=== PATIENT | male | born 1960 | race Caucasian/White ===

== ENCOUNTER → 2021-12-07 | Outpatient (CLI) | payer OTHER ==
[~2021-12-07] MED LIST: ADVAIR 250/501 EA INH; ALDACTONE25 MG PO; AMLODIPINE BESYL5 MG PO; ASPIRIN ADULT L81 M2 PO; ATORVASTATIN CA40 M1 PO; COZAAR25 M1 PO; LASIX40 MG PO; LEVOFLOXACIN750 M2 PO; LISINOPRIL10 M1 PO; LOSARTAN POTASS50 M1 PO; METOPROLOL SUCC50 M1 PO; MUCINEX1200 M1 PO; NORVASC5 MG PO; PREDNISONE10 MG PO; PROVENTIL HFA6.7 GM INH; TOPROL XL25 MG PO; VITAMIN D350 MC2 PO
[2021-12-07 14:31] LABS: BUN 4 mg/dl (7-24); CHLORIDE 102 mmol/L (98-107); CREATININE 0.83 mg/dL (0.70-1.30); POTASSIUM 4.4 mmol/L (3.5-5.1); SODIUM 135 mmol/L (136-145)
== END | disposition home or self-care (01) ==
LOC: LAB 13:34
PROVIDERS: ATTEND Registered Nurse
DX: E87.1 Hypo-osmolality and hyponatremia (principal)

== ENCOUNTER 2022-02-22 12:06 | Emergency (ER) | payer OTHER ==
[~2022-02-22] VITALS: Ht 182.8 cm; Wt 68.0 kg
[2022-02-22] MEDS ORDERED: HYDROCODONE-AC1 EAC1 PO (13:37)
[2022-02-22] MEDS ORDERED: VALTREX500 MG PO (13:37)
== END 2022-02-22 13:35 | disposition home or self-care (01) ==
LOC: ED 12:06
DX: B02.8 Zoster with other complications (principal); F10.10 Alcohol abuse, uncomplicated; Z87.891 Personal history of nicotine dependence; F12.10 Cannabis abuse, uncomplicated

== ENCOUNTER 2023-02-11 22:32 | Emergency (ER) | payer OTHER ==
[~2023-02-11] VITALS: Ht 182.8 cm; Wt 72.6 kg
[~2023-02-11 22:32] MED LIST changes: +HYDROCODONE-AC1 EAC1 PO; +VALTREX500 MG PO
== END 2023-02-12 01:04 | disposition short-term general hospital (02) ==
LOC: ED 22:32
DX: S72.002A Fracture of unspecified part of neck of left femur, initial encounter for closed fracture (principal); I50.9 Heart failure, unspecified; F17.210 Nicotine dependence, cigarettes, uncomplicated; Z98.890 Other specified postprocedural states; W18.39XA Other fall on same level, initial encounter; Y93.89 Activity, other specified; Y92.098 Other place in other non-institutional residence as the place of occurrence of the external cause; Y99.8 Other external cause status

== ENCOUNTER 2023-10-17 04:20 | Inpatient (IN) | payer OTHER ==
[~2023-10-17] VITALS: Ht 177.8 cm; Wt 66.8 kg
[2023-10-17] VITALS (12 sets, daily range): BP systolic 166–218; BP diastolic 75–109
[~2023-10-17 04:20] MED LIST changes: +METOPROLOL SUCC25 M2 PO
[2023-10-17] MEDS ORDERED: methylPREDNISolone sod succ 125 MG VIAL IV ONE (04:25)
[2023-10-17] MEDS ORDERED: Albuterol Sulf/Ipratropium 3 ML VIAL NEB ONE (04:25)
[2023-10-17 05:21] LABS: ALKALINE PHOSPHATASE 93 U/L (46-116); BUN 17 mg/dl (9-23); CHLORIDE 96 mmol/L (98-107); POTASSIUM 4.5 mmol/L (3.4-5.1); SGPT/ALT 16 U/L (5-49); TOTAL PROTEIN 6.9 gm/dL (6.0-8.0)
[2023-10-17 06:01] LABS: BASO # 0.1 10*3/uL (0.0-0.1); BASO % 0.7 % (0.0-1.0); EOS # 0.4 10*3/uL (0.0-0.4); EOS % 4.7 % (1.0-4.0); LYMPH # 1.1 10*3/uL (1.3-4.4); LYMPH % 13.5 % (27.0-41.0); MEAN CELL VOLUME 98.2 fl (80.0-94.0); MEAN CORPUSCULAR HGB 32.8 pg (27.0-31.0); MEAN CORPUSCULAR HGB CONC 33.4 g/dl (33.0-37.0); MONO # 0.8 10*3/uL (0.1-1.0); MONO % 9.7 % (3.0-9.0); NEUT # 5.6 10*3/uL (2.3-7.9); PLATELET COUNT AUTOMATED 167 10*3/uL (130-400); RED BLOOD COUNT 3.87 10*6/uL (4.50-5.90); RED CELL DISTRI WIDTH 12.8 % (0-14.5)
[2023-10-17] MEDS ORDERED: MAGNESIUM OXIDE 400 MG TAB PO ONE (06:25)
[2023-10-17] MEDS ORDERED: Ceftriaxone Sodium 1 GM/10 ML SYR IV ONE (06:30)
[2023-10-17] MEDS ORDERED: SODIUM CHLORIDE 0.9% 1,000 ML IV ONE (06:30)
[2023-10-17] MEDS ORDERED: hydrALAZINE hydrochloride 20 MG/ML VIAL IV ONE ×3 (06:30→16:25)
[2023-10-17] MEDS ORDERED: AZITHROMYCIN 250 ML IV ONE (06:30)
[2023-10-17] MEDS ORDERED: Magnesium Hydroxide 30 ML UDC PO PRN (07:00)
[2023-10-17] MEDS ORDERED: ACETAMINOPHEN 650 MG SUPP R PRN (07:00)
[2023-10-17] MEDS ORDERED: BISACODYL 10 MG SUPP R PRN (07:00)
[2023-10-17] MEDS ORDERED: Ondansetron Hydrochloride 4 MG/2 ML VIAL IV PRN (07:00)
[2023-10-17] MEDS ORDERED: BISACODYL 5 MG TAB PO PRN (07:00)
[2023-10-17] MEDS ORDERED: ACETAMINOPHEN 325 MG TAB PO PRN (07:00)
[2023-10-17] MEDS ORDERED: Enoxaparin Sodium 40 MG/0.4 ML SYR SC SCH (10:00)
[2023-10-17] MEDS ORDERED: ASPIRIN ENTERIC COATED 81 MG TAB PO SCH (10:00)
[2023-10-17] MEDS ORDERED: METOPROLOL SUCCINATE XR 25 MG TAB PO SCH (10:00)
[2023-10-17] MEDS ORDERED: LOSARTAN POTASS25 M1 PO (10:10)
[2023-10-17] MEDS ORDERED: Albuterol Sulf/Ipratropium 3 ML VIAL NEB SCH (11:36)
[2023-10-17] MEDS ORDERED: LORazepam 2 MG/ML VIAL IV PRN (11:55)
[2023-10-17] MEDS ORDERED: LORazepam 1 MG TAB PO SCH (12:00)
[2023-10-17] MEDS ORDERED: Labetalol Hydrochloride 20 MG/4 ML SYR IV ONE ×2 (12:10→22:25)
[2023-10-17] MEDS ORDERED: methylPREDNISolone sod succ 125 MG VIAL IV SCH (22:00)
[2023-10-18] VITALS: BP 191/85
[2023-10-18 00:23] VITALS: BP 168/74
[2023-10-18] MEDS ORDERED: AZITHROMYCIN 250 ML IV SCH (06:00)
[2023-10-18 06:15] LABS: HEMATOCRIT 37.4 % (42.0-52.0); LYMPH # 0.5 10*3/uL (1.3-4.4); LYMPH % 10.3 % (27.0-41.0); MEAN CELL VOLUME 95.2 fl (80.0-94.0); MEAN CORPUSCULAR HGB 32.3 pg (27.0-31.0); MEAN PLATELET VOLUME 9.9 fl (9.6-12.3); MONO # 0.3 10*3/uL (0.1-1.0); MONO % 5.8 % (3.0-9.0); NEUT # 4.3 10*3/uL (2.3-7.9); NEUT % 83.5 % (47.0-73.0); PLATELET COUNT AUTOMATED 183 10*3/uL (130-400); RED BLOOD COUNT 3.93 10*6/uL (4.50-5.90); RED CELL DISTRI WIDTH 13.1 % (0-14.5); WHITE BLOOD COUNT 5.2 10*3/uL (4.8-10.8)
[2023-10-18] MEDS ORDERED: Ceftriaxone Sodium 10 ML IV SCH (07:00)
[2023-10-18 07:32] LABS: BUN 19 mg/dl (9-23); CHLORIDE 99 mmol/L (98-107); CHOLESTEROL 132 mg/dL (<200); FREE T4 1.37 ng/dl (0.89-1.76); LDL CHOLESTEROL 60 mg/dL (9-159); POTASSIUM 4.7 mmol/L (3.4-5.1); TRIGLYCERIDES 55 mg/dl (<150)
[2023-10-18 07:56] LABS: VITAMIN D, 25-HYDROXY 11.8 ng/mL (30-100)
[2023-10-18 08:00] VITALS: BP 179/92
[2023-10-18] MEDS ORDERED: Losartan Potassium 25 MG TAB PO SCH (10:00)
[2023-10-18] MEDS ORDERED: METOPROLOL SUCCINATE XR 50 MG TAB PO SCH (10:00)
[2023-10-18 12:00] VITALS: BP 182/85
[2023-10-18] MEDS ORDERED: LORazepam 1 MG TAB PO SCH (14:00)
[2023-10-18 16:00] VITALS: BP 179/80
[2023-10-18 20:00] VITALS: BP 174/78
[2023-10-18] MEDS ORDERED: Losartan Potassium 50 MG TAB PO SCH (22:00)
[2023-10-19] VITALS: BP 178/84
[2023-10-19] MEDS ORDERED: LORazepam 1 MG TAB PO PRN
[2023-10-19 08:00] VITALS: BP 177/103; BP 180/62
[2023-10-19] MEDS ORDERED: Nicotine 21 MG PATCH T SCH (10:00)
[2023-10-19] MEDS ORDERED: methylPREDNISolone sod succ 40 MG VIAL IV SCH (10:00)
[2023-10-19 12:00] VITALS: BP 160/70
[2023-10-19] MEDS ORDERED: Water, Sterile 10 ML VIAL ONE (15:04)
== END 2023-10-19 15:48 | disposition left against medical advice (07) | DRG 720 ==
LOC: ED 04:20 → 4E 06:36 → EDHOLD 06:36 → 4E 17:02
PROVIDERS: Internal Medicine; Student in an Organized Health Care Education/Training Program; ADMIT Student in an Organized Health Care Education/Training Program; ATTEND Student in an Organized Health Care Education/Training Program
DX: A41.9 Sepsis, unspecified organism (principal); J96.01 Acute respiratory failure with hypoxia; E44.0 Moderate protein-calorie malnutrition; J18.9 Pneumonia, unspecified organism; J44.1 Chronic obstructive pulmonary disease with (acute) exacerbation; J44.0 Chronic obstructive pulmonary disease with (acute) lower respiratory infection; E87.1 Hypo-osmolality and hyponatremia; I16.0 Hypertensive urgency; E83.42 Hypomagnesemia; D53.9 Nutritional anemia, unspecified; F17.210 Nicotine dependence, cigarettes, uncomplicated; I73.9 Peripheral vascular disease, unspecified; I50.22 Chronic systolic (congestive) heart failure; I11.0 Hypertensive heart disease with heart failure; F10.939 Alcohol use, unspecified with withdrawal, unspecified; R65.20 Severe sepsis without septic shock; Z78.9 Other specified health status; Z71.6 Tobacco abuse counseling; Z68.21 Body mass index [BMI] 21.0-21.9, adult; Z53.29 Procedure and treatment not carried out because of patient's decision for other reasons

== ENCOUNTER 2023-11-13 10:43 | Inpatient (IN) | payer OTHER ==
[2023-11-13] VITALS (7 sets, daily range): BP systolic 156–190; BP diastolic 65–90
[~2023-11-13] VITALS: Ht 182.9 cm; Wt 68.3 kg
[~2023-11-13 10:43] MED LIST changes: +ATORVASTATIN CA80 M1 PO; +LOSARTAN POTASS25 M1 PO; +OMNICEF300 MG PO; +PREDNISONE50 MG PO; +VIBRAMYCIN HYC100 MG PO; +ZITHROMAX250 MG PO
[2023-11-13] MEDS ORDERED: OMNICEF300 MG PO (10:58)
[2023-11-13] MEDS ORDERED: ZITHROMAX250 MG PO (10:58)
[2023-11-13 11:06] LABS: BASO % 0.1 % (0.0-1.0); EOS # 0.1 10*3/uL (0.0-0.4); EOS % 0.4 % (1.0-4.0); HEMATOCRIT 39.4 % (42.0-52.0); LYMPH # 2.1 10*3/uL (1.3-4.4); LYMPH % 15.4 % (27.0-41.0); MEAN CELL VOLUME 98.3 fl (80.0-94.0); MEAN CORPUSCULAR HGB 32.2 pg (27.0-31.0); MEAN CORPUSCULAR HGB CONC 32.7 g/dl (33.0-37.0); MEAN PLATELET VOLUME 9.3 fl (9.6-12.3); MONO # 1.4 10*3/uL (0.1-1.0); MONO % 9.9 % (3.0-9.0); NEUT # 10.1 10*3/uL (2.3-7.9); NEUT % 73.5 % (47.0-73.0); PLATELET COUNT AUTOMATED 261 10*3/uL (130-400); RED BLOOD COUNT 4.01 10*6/uL (4.50-5.90); RED CELL DISTRI WIDTH 12.8 % (0-14.5); WHITE BLOOD COUNT 13.8 10*3/uL (4.8-10.8)
[2023-11-13 11:24] LABS: BUN 37 mg/dl (9-23); CHLORIDE 99 mmol/L (98-107); POTASSIUM 4.6 mmol/L (3.4-5.1)
[2023-11-13 11:59] LABS: BILIRUBIN Negative (Negative); BLOOD Negative (Negative); CLARITY Clear (Clear); COLOR Yellow (Yellow); GLUCOSE Negative (Negative); KETONE Negative (Negative); LEUKO ESTERASE Negative (Negative); NITRITE Negative (Negative); SPECIFIC GRAVITY 1.015 (1.001-1.030); UROBILINOGEN 0.2 E.U./dl (0.0-1.0)
[2023-11-13] MEDS ORDERED: Ceftriaxone Sodium 1 GM/10 ML SYR IV ONE (12:10)
[2023-11-13] MEDS ORDERED: AZITHROMYCIN 250 ML IV ONE (12:10)
[2023-11-13] MEDS ORDERED: FUROSEMIDE 40 MG/4 ML VIAL IV ONE (12:10)
[2023-11-13 12:20] LABS: EPITHELIAL CELLS 0-2
[2023-11-13] MEDS ORDERED: Enoxaparin Sodium 100 MG/ML SYR SC ONE (14:00)
[2023-11-13] MEDS ORDERED: BISACODYL 5 MG TAB PO PRN (14:20)
[2023-11-13] MEDS ORDERED: ACETAMINOPHEN 650 MG SUPP R PRN (14:20)
[2023-11-13] MEDS ORDERED: BISACODYL 10 MG SUPP R PRN (14:20)
[2023-11-13] MEDS ORDERED: Acetaminophen/Hydrocodone 5 MG/325 MG TABLET PO PRN (14:20)
[2023-11-13] MEDS ORDERED: TEMAZEPAM 15 MG CAP PO PRN (14:20)
[2023-11-13] MEDS ORDERED: ACETAMINOPHEN 325 MG TAB PO PRN (14:20)
[2023-11-13] MEDS ORDERED: predniSONE 20 MG TAB PO SCH (14:25)
[2023-11-13] MEDS ORDERED: Albuterol Sulf/Ipratropium 3 ML VIAL NEB PRN (14:25)
[2023-11-13] MEDS ORDERED: METOPROLOL SUCCINATE XR 25 MG TAB PO SCH (14:25)
[2023-11-13] MEDS ORDERED: ASPIRIN ENTERIC COATED 81 MG TAB PO SCH (14:25)
[2023-11-13] MEDS ORDERED: ATORVASTATIN CALCIUM 80 MG TAB PO SCH (14:25)
[2023-11-13] MEDS ORDERED: NORVASC5 MG PO (15:09)
[2023-11-13] MEDS ORDERED: VIBRAMYCIN100 MG PO (15:11)
[2023-11-13] MEDS ORDERED: Doxycycline Hyclate 100 MG CAP PO SCH (22:00)
[2023-11-14] VITALS: BP 158/75
[2023-11-14 05:41] LABS: BUN 30 mg/dl (9-23); CHLORIDE 99 mmol/L (98-107); POTASSIUM 4.7 mmol/L (3.4-5.1)
[2023-11-14 06:16] LABS: BASO % 0.1 % (0.0-1.0); HEMATOCRIT 40.8 % (42.0-52.0); LYMPH # 0.6 10*3/uL (1.3-4.4); LYMPH % 7.1 % (27.0-41.0); MEAN CELL VOLUME 99.5 fl (80.0-94.0); MEAN CORPUSCULAR HGB CONC 32.1 g/dl (33.0-37.0); MEAN PLATELET VOLUME 10.1 fl (9.6-12.3); MONO # 0.3 10*3/uL (0.1-1.0); MONO % 3.5 % (3.0-9.0); NEUT # 7.7 10*3/uL (2.3-7.9); NEUT % 88.7 % (47.0-73.0); PLATELET COUNT AUTOMATED 240 10*3/uL (130-400); RED CELL DISTRI WIDTH 12.7 % (0-14.5); WHITE BLOOD COUNT 8.6 10*3/uL (4.8-10.8)
[2023-11-14 08:00] VITALS: BP 150/63
[2023-11-14] MEDS ORDERED: Enoxaparin Sodium 40 MG/0.4 ML SYR SC SCH (10:00)
[2023-11-14] MEDS ORDERED: amLODIPine besylate 5 MG TAB PO SCH (10:00)
[2023-11-14] MEDS ORDERED: Losartan Potassium 100 MG TABLET PO SCH (10:00)
[2023-11-14 12:00] VITALS: BP 161/98
[2023-11-14] MEDS ORDERED: Nicotine 21 MG PATCH T SCH (12:00)
[2023-11-14 16:00] VITALS: BP 147/77
[2023-11-14] MEDS ORDERED: MAGNESIUM SULFATE 50 ML IV ONE (19:50)
[2023-11-14 20:00] VITALS: BP 151/76
[2023-11-15] VITALS (7 sets, daily range): BP systolic 143–184; BP diastolic 62–86
[2023-11-15 06:36] LABS: BASO % 0.1 % (0.0-1.0); EOS % 0.1 % (1.0-4.0); HEMATOCRIT 37.9 % (42.0-52.0); LYMPH # 1.3 10*3/uL (1.3-4.4); LYMPH % 12.3 % (27.0-41.0); MEAN CORPUSCULAR HGB 32.4 pg (27.0-31.0); MEAN CORPUSCULAR HGB CONC 32.7 g/dl (33.0-37.0); MEAN PLATELET VOLUME 9.8 fl (9.6-12.3); MONO # 0.9 10*3/uL (0.1-1.0); MONO % 8.7 % (3.0-9.0); NEUT # 8.4 10*3/uL (2.3-7.9); NEUT % 78.1 % (47.0-73.0); PLATELET COUNT AUTOMATED 234 10*3/uL (130-400); RED BLOOD COUNT 3.83 10*6/uL (4.50-5.90); RED CELL DISTRI WIDTH 12.6 % (0-14.5); WHITE BLOOD COUNT 10.7 10*3/uL (4.8-10.8)
[2023-11-15 07:19] LABS: BUN 32 mg/dl (9-23); CHLORIDE 100 mmol/L (98-107); POTASSIUM 4.5 mmol/L (3.4-5.1)
[2023-11-16] VITALS: BP 162/58
[2023-11-16 08:00] VITALS: BP 167/50
[2023-11-16 16:00] VITALS: BP 180/70
[2023-11-16 20:00] VITALS: BP 160/70
[2023-11-17] VITALS: BP 160/80
[2023-11-17] MEDS ORDERED: Melatonin 3 MG TABLET PO PRN (00:05)
[2023-11-17] MEDS ORDERED: Melatonin 5 MG TABLET PO SCH (00:30)
[2023-11-17 08:00] VITALS: BP 174/91
[2023-11-17 12:00] VITALS: BP 168/62
[2023-11-17] MEDS ORDERED: amLODIPine besylate 5 MG TAB PO ONE (12:55)
[2023-11-17] MEDS ORDERED: AMLODIPINE BESYL5 MG PO (14:26)
[2023-11-17] MEDS ORDERED: MELATONIN5 M7 PO (14:26)
[2023-11-18] MEDS ORDERED: amLODIPine besylate 5 MG TAB PO SCH ×2 (10:00)
== END 2023-11-17 20:44 | DRG 720 ==
LOC: ED 10:43 → EDHOLD 14:15 → 4E 14:15 → EDHOLD 14:16 → 4E 14:35
PROVIDERS: Internal Medicine; Student in an Organized Health Care Education/Training Program; ADMIT Family Medicine; ATTEND Family Medicine
DX: A41.9 Sepsis, unspecified organism (principal); J15.69 Pneumonia due to other Gram-negative bacteria; E87.1 Hypo-osmolality and hyponatremia; I21.A1 Myocardial infarction type 2; J44.0 Chronic obstructive pulmonary disease with (acute) lower respiratory infection; I13.0 Hypertensive heart and chronic kidney disease with heart failure and stage 1 through stage 4 chronic kidney disease, or unspecified chronic kidney disease; N18.31 Chronic kidney disease, stage 3a; J44.9 Chronic obstructive pulmonary disease, unspecified; I16.1 Hypertensive emergency; D53.9 Nutritional anemia, unspecified; D50.9 Iron deficiency anemia, unspecified; D72.828 Other elevated white blood cell count; M54.50 Low back pain, unspecified; G89.29 Other chronic pain; I73.9 Peripheral vascular disease, unspecified; I50.22 Chronic systolic (congestive) heart failure; Z80.8 Family history of malignant neoplasm of other organs or systems; Z71.6 Tobacco abuse counseling; Z79.82 Long term (current) use of aspirin; Z79.84 Long term (current) use of oral hypoglycemic drugs; Z79.899 Other long term (current) drug therapy

== ENCOUNTER 2023-11-23 19:18 | Emergency (ER) | payer OTHER ==
[~2023-11-23] VITALS: Ht 182.8 cm; Wt 78.9 kg
[~2023-11-23 19:18] MED LIST changes: +MELATONIN5 M7 PO; +VIBRAMYCIN100 MG PO
[2023-11-23 19:41] LABS: BASO % 0.1 % (0.0-1.0); EOS # 0.1 10*3/uL (0.0-0.4); EOS % 1.1 % (1.0-4.0); HEMATOCRIT 34.5 % (42.0-52.0); LYMPH # 1.9 10*3/uL (1.3-4.4); LYMPH % 21.3 % (27.0-41.0); MEAN CELL VOLUME 98.3 fl (80.0-94.0); MEAN CORPUSCULAR HGB 32.2 pg (27.0-31.0); MEAN CORPUSCULAR HGB CONC 32.8 g/dl (33.0-37.0); MEAN PLATELET VOLUME 9.7 fl (9.6-12.3); MONO # 0.9 10*3/uL (0.1-1.0); MONO % 9.9 % (3.0-9.0); NEUT # 5.9 10*3/uL (2.3-7.9); NEUT % 67.3 % (47.0-73.0); PLATELET COUNT AUTOMATED 187 10*3/uL (130-400); RED BLOOD COUNT 3.51 10*6/uL (4.50-5.90); RED CELL DISTRI WIDTH 13.1 % (0-14.5); WHITE BLOOD COUNT 8.8 10*3/uL (4.8-10.8)
[2023-11-23 20:06] LABS: ALKALINE PHOSPHATASE 98 U/L (46-116); BUN 22 mg/dl (9-23); CHLORIDE 106 mmol/L (98-107); POTASSIUM 4.2 mmol/L (3.4-5.1); SGPT/ALT 52 U/L (5-49); TOTAL PROTEIN 6.4 gm/dL (6.0-8.0)
[2023-11-23] MEDS ORDERED: BUMETANIDE 1 MG/4 ML VIAL IM ONE (20:25)
== END 2023-11-23 20:58 ==
LOC: ED 19:18
PROVIDERS: Internal Medicine
DX: R60.0 Localized edema (principal); D53.9 Nutritional anemia, unspecified; T38.0X5A Adverse effect of glucocorticoids and synthetic analogues, initial encounter; J44.9 Chronic obstructive pulmonary disease, unspecified; I11.0 Hypertensive heart disease with heart failure; I50.9 Heart failure, unspecified; F10.10 Alcohol abuse, uncomplicated; F12.10 Cannabis abuse, uncomplicated; F17.200 Nicotine dependence, unspecified, uncomplicated; Z95.5 Presence of coronary angioplasty implant and graft; Z98.890 Other specified postprocedural states; Y92.129 Unspecified place in nursing home as the place of occurrence of the external cause

== ENCOUNTER 2023-11-25 08:32 | Emergency (ER) | payer OTHER ==
[~2023-11-25] VITALS: Wt 70.3 kg
[2023-11-25] MEDS ORDERED: IOHEXOL 300 MG/ML 100 ML VIAL IV ONE (09:35)
[2023-11-25 09:37] LABS: BASO % 0.3 % (0.0-1.0); EOS # 0.1 10*3/uL (0.0-0.4); EOS % 1.7 % (1.0-4.0); HEMATOCRIT 33.1 % (42.0-52.0); LYMPH # 1.4 10*3/uL (1.3-4.4); LYMPH % 20.8 % (27.0-41.0); MEAN CELL VOLUME 97.6 fl (80.0-94.0); MEAN CORPUSCULAR HGB 32.2 pg (27.0-31.0); MEAN CORPUSCULAR HGB CONC 32.9 g/dl (33.0-37.0); MEAN PLATELET VOLUME 9.5 fl (9.6-12.3); MONO # 0.7 10*3/uL (0.1-1.0); MONO % 10.1 % (3.0-9.0); NEUT # 4.6 10*3/uL (2.3-7.9); NEUT % 66.8 % (47.0-73.0); PLATELET COUNT AUTOMATED 179 10*3/uL (130-400); RED BLOOD COUNT 3.39 10*6/uL (4.50-5.90); RED CELL DISTRI WIDTH 12.9 % (0-14.5); WHITE BLOOD COUNT 6.9 10*3/uL (4.8-10.8)
[2023-11-25 09:56] LABS: BUN 19 mg/dl (9-23); CHLORIDE 105 mmol/L (98-107); POTASSIUM 4.1 mmol/L (3.4-5.1)
[2023-11-25] MEDS ORDERED: FUROSEMIDE 40 MG/4 ML VIAL IV ONE (12:35)
[2023-11-25] MEDS ORDERED: LASIX40 MG PO (12:44)
== END 2023-11-25 12:48 ==
LOC: ED 08:32
PROVIDERS: Internal Medicine
DX: I11.0 Hypertensive heart disease with heart failure (principal); I50.9 Heart failure, unspecified; R60.0 Localized edema; J44.9 Chronic obstructive pulmonary disease, unspecified; F10.10 Alcohol abuse, uncomplicated; F12.10 Cannabis abuse, uncomplicated; F17.200 Nicotine dependence, unspecified, uncomplicated; Z95.5 Presence of coronary angioplasty implant and graft; Z98.890 Other specified postprocedural states

== ENCOUNTER 2023-11-29 05:52 | Emergency (ER) | payer OTHER ==
[~2023-11-29] VITALS: Ht 182.8 cm; Wt 70.3 kg
[2023-11-29] MEDS ORDERED: Albuterol Sulf/Ipratropium 3 ML VIAL NEB ONE (05:55)
[2023-11-29] MEDS ORDERED: methylPREDNISolone sod succ 125 MG VIAL IV ONE (05:55)
[2023-11-29] MEDS ORDERED: BUMETANIDE 1 MG/4 ML VIAL IV ONE (06:00)
[2023-11-29 06:23] LABS: BASO % 0.6 % (0.0-1.0); EOS # 0.2 10*3/uL (0.0-0.4); HEMATOCRIT 31.4 % (42.0-52.0); LYMPH # 1.4 10*3/uL (1.3-4.4); LYMPH % 19.6 % (27.0-41.0); MEAN CELL VOLUME 99.7 fl (80.0-94.0); MEAN CORPUSCULAR HGB 32.1 pg (27.0-31.0); MEAN CORPUSCULAR HGB CONC 32.2 g/dl (33.0-37.0); MEAN PLATELET VOLUME 9.9 fl (9.6-12.3); MONO # 0.6 10*3/uL (0.1-1.0); MONO % 8.4 % (3.0-9.0); NEUT # 4.7 10*3/uL (2.3-7.9); NEUT % 68.1 % (47.0-73.0); PLATELET COUNT AUTOMATED 192 10*3/uL (130-400); RED BLOOD COUNT 3.15 10*6/uL (4.50-5.90); RED CELL DISTRI WIDTH 13.2 % (0-14.5); WHITE BLOOD COUNT 6.9 10*3/uL (4.8-10.8)
[2023-11-29 06:39] LABS: ALKALINE PHOSPHATASE 106 U/L (46-116); CHLORIDE 104 mmol/L (98-107); POTASSIUM 4.4 mmol/L (3.4-5.1); SGPT/ALT 37 U/L (5-49); TOTAL PROTEIN 6.8 gm/dL (6.0-8.0)
[2023-11-29 06:43] LABS: BUN 30 mg/dl (9-23)
== END 2023-11-29 09:48 | disposition left against medical advice (07) ==
LOC: ED 05:52
PROVIDERS: Internal Medicine
DX: J44.1 Chronic obstructive pulmonary disease with (acute) exacerbation (principal); J96.90 Respiratory failure, unspecified, unspecified whether with hypoxia or hypercapnia; I50.9 Heart failure, unspecified; D63.1 Anemia in chronic kidney disease; E87.1 Hypo-osmolality and hyponatremia; I13.0 Hypertensive heart and chronic kidney disease with heart failure and stage 1 through stage 4 chronic kidney disease, or unspecified chronic kidney disease; N18.30 Chronic kidney disease, stage 3 unspecified; Z53.29 Procedure and treatment not carried out because of patient's decision for other reasons

== ENCOUNTER 2024-03-23 02:18 | Emergency (ER) | payer OTHER ==
[~2024-03-23] VITALS: Ht 182.8 cm; Wt 62.2 kg
[~2024-03-23 02:18] MED LIST changes: +AMLODIPINE BESY10 MG PO; +ASPIRIN CHEWABL81 MG PO; +LIPITOR80 MG PO; +LOSARTAN POTAS100 M1 PO; +VITAMIN D350 MCG PO
[2024-03-23] MEDS ORDERED: SILVER SULFADIAZINE 25 GM TUBE T ONE (02:40)
[2024-03-23] MEDS ORDERED: Bacitracin Zinc 14 GM TUBE T ONE (02:40)
[2024-03-23 04:22] LABS: BASO % 0.4 % (0.0-1.0); HEMATOCRIT 48.5 % (42.0-52.0); MEAN CORPUSCULAR HGB CONC 32.6 g/dl (33.0-37.0); MEAN PLATELET VOLUME 9.4 fl (9.6-12.3); MONO # 1.1 10*3/uL (0.1-1.0); MONO % 13.4 % (3.0-9.0); NEUT # 6.3 10*3/uL (2.3-7.9); NEUT % 78.3 % (47.0-73.0); PLATELET COUNT AUTOMATED 200 10*3/uL (130-400); RED BLOOD COUNT 5.27 10*6/uL (4.50-5.90); RED CELL DISTRI WIDTH 12.5 % (0-14.5); WHITE BLOOD COUNT 8.1 10*3/uL (4.8-10.8)
[2024-03-23 04:40] LABS: BUN 25 mg/dl (9-23); CHLORIDE 95 mmol/L (98-107); POTASSIUM 4.4 mmol/L (3.4-5.1)
[2024-03-23] MEDS ORDERED: SILVADENE20 GM T (06:19)
[2024-03-23] MEDS ORDERED: BACITRAYCIN PLU28 GM T (06:19)
== END 2024-03-23 07:07 | disposition home or self-care (01) ==
LOC: ED 02:18
PROVIDERS: Internal Medicine
DX: T20.10XA Burn of first degree of head, face, and neck, unspecified site, initial encounter (principal); J44.9 Chronic obstructive pulmonary disease, unspecified; E87.1 Hypo-osmolality and hyponatremia; D63.1 Anemia in chronic kidney disease; I13.0 Hypertensive heart and chronic kidney disease with heart failure and stage 1 through stage 4 chronic kidney disease, or unspecified chronic kidney disease; N18.30 Chronic kidney disease, stage 3 unspecified; I50.9 Heart failure, unspecified; T31.0 Burns involving less than 10% of body surface; Z53.29 Procedure and treatment not carried out because of patient's decision for other reasons; F17.200 Nicotine dependence, unspecified, uncomplicated; Z95.5 Presence of coronary angioplasty implant and graft; Z98.890 Other specified postprocedural states; X08.8XXA Exposure to other specified smoke, fire and flames, initial encounter; Y93.G2 Activity, grilling and smoking food; Y92.009 Unspecified place in unspecified non-institutional (private) residence as the place of occurrence of the external cause; Y99.8 Other external cause status

== ENCOUNTER 2024-04-01 04:14 | Emergency (ER) | payer OTHER ==
[~2024-04-01] VITALS: Ht 182.8 cm; Wt 65.8 kg
[~2024-04-01 04:14] MED LIST changes: +BACITRAYCIN PLU28 GM T; +SILVADENE20 GM T
[2024-04-01] MEDS ORDERED: Albuterol Sulf/Ipratropium 3 ML VIAL NEB ONE (04:25)
[2024-04-01] MEDS ORDERED: methylPREDNISolone sod succ 125 MG VIAL IV ONE (04:25)
[2024-04-01 04:45] LABS: BASO # 0.1 10*3/uL (0.0-0.1); BASO % 0.4 % (0.0-1.0); EOS % 0.2 % (1.0-4.0); HEMATOCRIT 47.9 % (42.0-52.0); MEAN CELL VOLUME 91.2 fl (80.0-94.0); MEAN CORPUSCULAR HGB 29.9 pg (27.0-31.0); MEAN CORPUSCULAR HGB CONC 32.8 g/dl (33.0-37.0); MONO # 1.2 10*3/uL (0.1-1.0); MONO % 9.9 % (3.0-9.0); NEUT % 74.2 % (47.0-73.0); PLATELET COUNT AUTOMATED 319 10*3/uL (130-400); RED BLOOD COUNT 5.25 10*6/uL (4.50-5.90); RED CELL DISTRI WIDTH 12.5 % (0-14.5); WHITE BLOOD COUNT 12.1 10*3/uL (4.8-10.8)
[2024-04-01 05:04] LABS: POTASSIUM 4.6 mmol/L (3.4-5.1)
[2024-04-01] MEDS ORDERED: PREDNISONE50 MG PO (06:20)
[2024-04-01] MEDS ORDERED: AVPAK AZITHROM250 MG PO (06:20)
== END 2024-04-01 06:53 | disposition home or self-care (01) ==
LOC: ED 04:14
PROVIDERS: Internal Medicine
DX: J44.1 Chronic obstructive pulmonary disease with (acute) exacerbation (principal); I13.0 Hypertensive heart and chronic kidney disease with heart failure and stage 1 through stage 4 chronic kidney disease, or unspecified chronic kidney disease; N18.30 Chronic kidney disease, stage 3 unspecified; I50.9 Heart failure, unspecified; D63.1 Anemia in chronic kidney disease; E87.1 Hypo-osmolality and hyponatremia; F10.10 Alcohol abuse, uncomplicated; F12.10 Cannabis abuse, uncomplicated; F17.210 Nicotine dependence, cigarettes, uncomplicated; Z95.5 Presence of coronary angioplasty implant and graft; Z98.890 Other specified postprocedural states